=== PATIENT | male | born 1970 | race Caucasian/White ===

== ENCOUNTER 2017-07-07 04:35 | Inpatient (IN) | payer SELFPAY ==
[~2017-07-07] VITALS: Ht 177.8 cm; Wt 66.5 kg
[2017-07-07] MEDS ORDERED: ONDANSETRON HCL/PF 4 MG/2 ML VIAL ONE (05:07)
[2017-07-07] MEDS ORDERED: HYDROMORPHONE INJ 2 MG/ML DISP.SYRIN ONE (05:08)
[2017-07-07] MEDS ORDERED: ONDANSETRON HCL/PF 4 MG/2 ML VIAL IVP ONE (05:30)
[2017-07-07] MEDS ORDERED: HYDROMORPHONE INJ 2 MG/ML DISP.SYRIN IV ONE (05:30)
[2017-07-07] MEDS ORDERED: IV NS 0.9% 1,000 ML BAG IV ONE (05:30)
[2017-07-07 05:37] LABS: BASOPHILS % (AUTO) 0.3 % (0.0-2.0); EOSINOPHILS # (AUTO) 0.1 /CMM (0.0-0.7); EOSINOPHILS % (AUTO) 0.4 % (0.0-6.0); HEMATOCRIT 46 % (39-51); HEMOGLOBIN 15.7 g/dL (13.5-17.5); LYMPHOCYTES # (AUTO) 1.8 /CMM (0.8-4.8); LYMPHOCYTES % (AUTO) 11.9 % (20.0-44.0); MEAN CORPUSCULAR HEMOGLOBIN 31 PG (26.0-33.0); MEAN CORPUSCULAR HGB CONC 34 g/dl (31.0-36.0); MEAN CORPUSCULAR VOLUME 90 fL (80-96); MONOCYTES # (AUTO) 0.7 /CMM (0.1-1.30); MONOCYTES % (AUTO) 4.9 % (2.0-12.0); NEUTROPHILS # (AUTO) 12.1 /CMM (1.8-8.9); NEUTROPHILS % (AUTO) 82.5 % (43.0-81.0); PLATELET COUNT (AUTO) 224 /CMM (150-450); RDW COEFFICIENT OF VARIATION 13.4 (11.5-15.0); RED BLOOD CELL COUNT(AUTO) 5.11 MIL/uL (4.5-6.0); WHITE BLOOD COUNT (AUTO) 14.7 K/uL (4.3-11.0)
--- NOTE | 2017-07-07 05:37 | NUR ---
46 Y/O MALE PLACED IN BED 4 C/O ABDOMINAL PAIN WITH N/V. VOMITING STARTED AT [facility] 2100. H/L PLACED IN PT AND IVF RUNNING. MEDICATIONS ORDERED AND GIVEN.
[2017-07-07 05:45] LABS: APPEARANCE,URINE CLEAR (CLEAR); BILIRUBIN,URINE NEGATIVE (NEGATIVE); BLOOD, URINE 1+ Ery/uL (NEGATIVE); COLOR,URINE YELLOW (YELLOW); KETONES,URINE NEGATIVE (NEGATIVE); LEUKOCYTE ESTERASE ,URINE NEGATIVE (NEGATIVE); NITRITE, URINE NEGATIVE (NEGATIVE); PROTEIN,URINE NEGATIVE (NEGATIVE); UGLUCOSE NEGATIVE (NEGATIVE); UROBILINOGEN,URINE 0.2 EU/dL (0.2)
[2017-07-07 05:50] LABS: BACTERIA,URINE Few /HPF (None Seen); SQUAMOUS EPITHELIAL CELL,UR Rare /HPF (None Seen); WBC,URINE 0-2 /HPF (0-3)
[2017-07-07 05:51] LABS: INR 0.96 (0.87-1.13)
[2017-07-07 05:54] LABS: ALBUMIN 4.4 g/dL (3.4-5.0); BILIRUBIN,DIRECT 0.2 mg/dL (0.0-0.2); CALCIUM, SERUM 10.1 mg/dL (8.5-10.1); TOTAL PROTEIN, SERUM 7.9 g/dL (6.4-8.2)
[2017-07-07] MEDS ORDERED: IOHEXOL-300 100 ML VIAL IV ONE (06:10)
[2017-07-07] MEDS ORDERED: IV NS 0.9% 250 ML IV ONE (06:10)
[2017-07-07] MEDS ORDERED: CT SWABBABLE VALVE TRANS SET 1 EA INFUS.SET MC ONE (06:10)
--- NOTE | 2017-07-07 06:31 | NUR ---
PT FEELING BETTER. TAKEN TO CT.
--- NOTE | 2017-07-07 07:22 | NUR ---
NGT INSERTED PT TOLERATED WELL
[2017-07-07] MEDS ORDERED: DIATR MEGLU/DIATRIZOATE SODIUM 120 ML BOTTLE (GASTROGRAPHIN) ONE (07:59)
--- NOTE | 2017-07-07 08:15 | NUR ---
PT TO RADIOLOGY FOR SMALL BOWEL FOLLOWTHROUGH
[2017-07-07] MEDS ORDERED: MORPHINE SULFATE INJ 4 MG/ML DISP.SYRIN ONE ×2 (08:28→08:29)
[2017-07-07] MEDS ORDERED: MORPHINE SULFATE INJ 2 MG/ML DISP.SYRIN IV ONE (08:30)
--- NOTE | 2017-07-07 08:57 | NUR ---
REPORT GIVEN TO KEYON WORKMAN FOR [facility]
[2017-07-07] MEDS ORDERED: ACETAMINOPHEN 325 MG TABLET PO PRN (09:00)
[2017-07-07] MEDS ORDERED: Z GUARD REMEDY 2 OZ OINT TP PRN (09:00)
[2017-07-07] MEDS ORDERED: HYDROCODONE/APAP 5/325MG 1 EACH TABLET PO PRN (09:00)
[2017-07-07] MEDS ORDERED: MAGNESIUM HYDROXIDE 30 ML UDC PO PRN (09:00)
[2017-07-07] MEDS ORDERED: MAG HYDROX/AL HYDROX/SIMETH 30 ML UDC PO PRN (09:00)
[2017-07-07] MEDS ORDERED: ONDANSETRON HCL/PF 4 MG/2 ML VIAL IVP PRN (09:00)
[2017-07-07] MEDS ORDERED: MORPHINE SULFATE INJ 4 MG/ML DISP.SYRIN IV PRN (09:30)
[2017-07-07 10:10] VITALS: BP 111/61
[2017-07-07] MEDS: PANTOPRAZOLE 40 MG VIAL IV SCH (10:33)
[2017-07-07] MEDS: IV NS 0.9% 1,000 ML IV PRN (10:34)
--- NOTE | 2017-07-07 11:02 | NUR ---
MS RN ADMITTING NOTES PT ADMITTED TO UNIT VIA GURNEY AWAKE, A/O X4. VERBALLY RESPONSIVE, NO C/O PAIN, N/& V, DIARRHEA AT THIS TIME. PT IS AMBULATORY. PT WITH DX OF ABDOMINAL PAIN WITH HX OF KIDNEY STONES AND INGUINAL HERNIA SURGERY 12 YRS AGO PER PATIENT. PT WAS ORIENTED TO UNIT. V/S TAKEN AND RECORDED. SKIN IS INTACT. PT WITH PT ACCORDINGLY. NGTUBE ON RIGHT NARE IN PLACED AND PATENT, PLACEMENT VERIFIED. HAS IV ACCESS ON LEFT AC G#18, INTACT AND PATENT, IVF OF NS @ 75ML/HR STARTED. BED PLACED ON LOW AND LOCKED POSITION WITH NQRG-IPDCT-VO X2. CALL LIGHT PLACED WITHIN EASY REACH. ALL SAFETY MEASURES INITIATED. WILL CONTINUE TO MONITOR PT ACCORDINGLY.
[2017-07-07] MEDS: PIPERACILLIN /TAZOBACTAM 3.375 G in IV D5W 50 ML IV SCH ×2 (11:58→18:07)
[2017-07-07 16:00] VITALS: BP 110/71
--- NOTE | 2017-07-07 18:34 | NUR ---
MS RN CLOSING NOTES PATIENT RESTING IN BED WITH FRIEND AT BEDSIDE. A/O X 4, VERBALLY RESPONSIVE AND AMBULATORY. ON ROOM AIR, BREATHING EVEN AND UNLABORED, NO SOB NOTED. NG-TUBE INTACT AND PATENT. PT IS NPO ORDERED. IV ACCESS ON LEFT AC G#18 INTACT AND PATENT WITH IVF OF NS @ 75ML/HR INFUSING WELL, NO SIGNS OF INFILTRATIONS NOTED. MAINTAINED BED IN LOWEST/LOCKED POSITION. CALL LIGHT IN REACH. ALL NEEDS AND CARE ATTENDED WELL. WILL ENDORSED TO MAIL PROCESSING MACHINE OPERATOR NURSE FOR R[facility].
--- NOTE | 2017-07-07 19:35 | NUR ---
RN OPENING NOTES RECEIVED REPORT FROM LEONELHIFT RNKYLE. FOUND Pt AWAKE, WALKING OUT OF RESTROOM. NO S/S OF ACUTE DISTRESS OR SOB NOTED. NO C/O SEVERE PAIN AT THIS TIME. FRIEND VISITING AT BEDSIDE. Pt IS A/OX4, VERBAL, ABLE TO MAKE NEEDS KNOWN. IV ACCESS ON LAC #18G, IVF NS @75ML/HR INFUSING WELL. SAFETY MEASURES IN PLACE. BED LOW, LOCKED, HOB ELEVATED, SIDE RAILS UP, CALL LIGHT AND BEDSIDE TABLE WITHIN REACH. WILL CONTINUE TO MONITOR Pt THROUGHOUT THE NIGHT FOR SAFETY.
[2017-07-07 20:00] VITALS: BP 125/72
--- NOTE | 2017-07-07 21:00 | NUR ---
RN NOTES SPOKE WITH DR. CONWAY ON THE PHONE. ORDERED FOR NGTUBE TO BE REMOVED STAT AND TO START Pt ON A CLEAR LIQUID DIET AND TO ADVANCE DIET TOLERATED.
[2017-07-08] MEDS: PIPERACILLIN /TAZOBACTAM 3.375 G in IV D5W 50 ML IV SCH ×4 (00:24→17:21)
--- NOTE | 2017-07-08 06:35 | NUR ---
RN CLOSING NOTES NO SIGNIFICANT CHANGES IN Pt's CONDITION. Pt REMAINS IN STABLE CONDITION AT THIS TIME. NO S/S OF ACUTE DISTRESS OR SOB NOTED DURING THE NIGHT. NG TUBE REMOVED. START ON CLEAR LIQUID DIET AND ADV TOLERATED. ALL NEEDS MET AND ATTENDED TO. SAFETY MEASURES IN PLACE. WILL ENDORSE TO DAYSHIFT RN FOR Pt's ROLY.
[2017-07-08] MEDS: IV NS 0.9% 1,000 ML IV PRN (07:04)
--- NOTE | 2017-07-08 07:27 | NUR ---
MS RN OPENING NOTES RECEIVED PATIENT AWAKE IN BED IN NO ACUTE SIGNS OF DISTRESS. A/O X 4, SAME VERBALLY RESPONSIVE, DENIES PAIN OR DISCOMFORTS AT THIS TIME. ON ROOM AIR, BREATHING EVEN AND UNLABORED, NO SOB NOTED. IV ACCESS ON LEFT AC G#18 INTACT AND PATENT WITH IVF OF NS @ 75ML/HR INFUSING WELL, NO SIGNS OF INFILTRATIONS NOTED. BED IN LOWEST/LOCKED POSITION. CALL LIGHT IN REACH. WILL CONTINUE TO MONITOR.
[2017-07-08 08:00] VITALS: BP 105/62
[2017-07-08] MEDS: PANTOPRAZOLE 40 MG VIAL IV SCH (08:56)
--- NOTE | 2017-07-08 11:42 | NUR ---
RN NOTES RECEIVED CALL FROM ELLYN JAIMES CLEARING PT FOR DISCHARGE ONCE PT TOLERATES FULL AND REGULAR DIET TODAY. WILL CONTINUE TO MONITOR
[2017-07-08 12:53] LABS: BASOPHILS % (AUTO) 0.4 % (0.0-2.0); EOSINOPHILS # (AUTO) 0.4 /CMM (0.0-0.7); EOSINOPHILS % (AUTO) 4.8 % (0.0-6.0); HEMATOCRIT 40 % (39-51); HEMOGLOBIN 13.7 g/dL (13.5-17.5); LYMPHOCYTES # (AUTO) 1.7 /CMM (0.8-4.8); MEAN CORPUSCULAR HEMOGLOBIN 30 PG (26.0-33.0); MEAN CORPUSCULAR HGB CONC 34 g/dl (31.0-36.0); MEAN CORPUSCULAR VOLUME 89 fL (80-96); MONOCYTES # (AUTO) 0.6 /CMM (0.1-1.30); MONOCYTES % (AUTO) 7.7 % (2.0-12.0); NEUTROPHILS % (AUTO) 65.1 % (43.0-81.0); PLATELET COUNT (AUTO) 172 /CMM (150-450); RDW COEFFICIENT OF VARIATION 13.9 (11.5-15.0); RED BLOOD CELL COUNT(AUTO) 4.51 MIL/uL (4.5-6.0); WHITE BLOOD COUNT (AUTO) 7.7 K/uL (4.3-11.0)
[2017-07-08 13:05] LABS: CALCIUM, SERUM 8.7 mg/dL (8.5-10.1); CREATININE 1.1 mg/dL (0.6-1.3); POTASSIUM 4.1 mmol/L (3.5-5.1)
--- NOTE | 2017-07-08 13:54 | NUR ---
RN NOTES PT TOLERATED CLEAR LIQUID DIET AT BREAKFAST AND FULL LIQUID DIET AT LUNCH TIME, NO C/O ABDOMINAL PAIN, DISTENTION, N & V. WILL ADVANCE TO REGULAR DIET AT DINNER. WILL CONTINUE TO MONITOR.
[2017-07-08 16:00] VITALS: BP 117/76
--- NOTE | 2017-07-08 18:26 | NUR ---
RN CLOSING NOTES PATIENT RESTING IN BED WITH FRIEND DAYANA AT BEDSIDE. A/O X 4, ABLE TO MAKE NEEDS AND CONCERNS KNOWN. PT JUST FINISHED EATING HIS DINNER, NO C/O PAIN, N& V AT THIS TIME, PT WILL BE DISCHARGED TONIGHT IF NO FURTHER ABDOMINAL PAIN, N & V VOICED. ON ROOM AIR, BREATHING EVEN WITH NO ACUTE RESPIRATORY DISTRESS NOTED. CALL LIGHT AND BEDSIDE TABLE KEPT WITHIN PT'S REACH. ALL NEEDS AND CARE ATTENDED WELL.
--- NOTE | 2017-07-08 19:34 | NUR ---
patient discharge home accompanied by his friend denies any pain or discomfort at this time, patient tolerated regular diet well no nausea vomited noted, no complain of abdominal pain breathing even unlabored, saline lock was removed skin intact.
== END 2017-07-08 19:41 | disposition home or self-care (01) | DRG 871 ==
LOC: ER 04:39 → MEDSG2 10:15
PROVIDERS: ADMIT Nurse Practitioner Acute Care; ATTEND Nurse Practitioner Acute Care
DX: A41.9 Sepsis, unspecified organism (principal); N17.0 Acute kidney failure with tubular necrosis; K56.609 Unspecified intestinal obstruction, unspecified as to partial versus complete obstruction; K76.0 Fatty (change of) liver, not elsewhere classified; Z87.442 Personal history of urinary calculi; K31.84 Gastroparesis; K30 Functional dyspepsia
CPT/HCPCS: 36415; 71045-TC; 74250-TC; 80048-TC; 80076-TC; 81000-TC; 83605-TC; 83690-TC; 85025-TC; 85730-TC; 86850-TC; 87040-TC; 87081-TC; C9113; J1170; J2270; J2405; J2543; J7030; J7050; J7060; Q9963; Q9967